=== PATIENT | male | born 1995 | race African-American/Black ===

== ENCOUNTER 2017-01-11 14:12 | Emergency (ER) | payer OTHER ==
[~2017-01-11] VITALS: Ht 175.3 cm; Wt 63.2 kg
[2017-01-11 14:26] VITALS: TEMP 36.9; Ht 175.3 cm; Wt 63.2 kg
[2017-01-11] MEDS ORDERED: MESA1TAB4 PO (15:33)
[2017-01-11] MEDS ORDERED: HIV POST EXPOSURE PROPHYLAXIS KIT ONE (16:00)
[2017-01-11 16:02] LABS: BASO % 0.9 %; BASO ABS # 0.04 K/uL (0-0.2); COMPLETE YES; EOS % 2.4 %; HEMATOCRIT 41.1 % (42-52); IG% 0.2 %; LYMPH % 33.9 %; LYMPH ABS # 1.53 K/uL (1.2-3.4); MEAN CELL VOLUME 81.5 fL (80-100); MEAN CORPUSCULAR HEMOGLOBIN 27.2 pg (25-34); MEAN CORPUSCULAR HGB CONC 33.3 g/dl (32-36); MEAN PLATELET VOLUME 8.7 fL (7.4-10.4); MONO % 9.3 %; NEUT % 53.3 %; PLATELET COUNT 396 K/uL (130-400); RED BLOOD COUNT 5.04 M/uL (4.7-6.1); WHITE BLOOD COUNT 4.51 K/uL (4.8-10.8)
[2017-01-11 16:29] LABS: CREATININE 0.97 mg/dl (0.60-1.40)
[2017-01-11 16:32] LABS: POTASSIUM 4.4 mmol/L (3.5-5.1)
[2017-01-11 16:50] LABS: BUN/CREATININE RATIO 11.5 (10-20); CALCIUM 9.1 mg/dl (8.5-10.1)
[2017-01-11 17:06] LABS: URINE APPEARANCE CLEAR (CLEAR); URINE BILIRUBIN NEG (NEG); URINE COLOR YELLOW; URINE NITRITE NEG (NEG); URINE PH 7.5 (4.5-7.5); URINE SPECIFIC GRAVITY 1.022 (1.000-1.030); UROBILINOGEN NEG (NEG)
[2017-01-11 17:17] LABS: MANUAL MICROSCOPIC REQUIRED? NO; REVIEW REQ? NO
[2017-01-11] MEDS ORDERED: RALT400T PO (17:41)
[2017-01-11] MEDS ORDERED: TRVHP PO (17:41)
[2017-01-11 18:30] VITALS: BP 124/75; PULSE 87; O2SAT 100
--- NOTE | 2017-01-11 22:41 | EMERGENCY ROOM VISIT NOTE ---
History Report prepared by Lashawn: Elena Escobar Under the Supervision of: Dr. Alejandro Womack M.D. First contact with patient: 15:10 Chief Complaint: ABDOMINAL PAIN Stated Complaint: CROHN'S SX/PEP History of Present Illness The patient is a 21 year old male who presents to the Emergency Room with complaints of intermittent bilateral lower abdominal pain for the past 1-2 weeks. His pain is worse in the morning, and he rates his current pain as a 3/ 10 in severity. He has a history of Crohn's Disease and currently takes Asacol. He was diagnosed with Crohn's when he was 16 and denies any flare-ups since his diagnosis. He has been careful about his diet and has been trying to eat healthy. He is currently a [employer] student and states that eating in the dining [place]ehan on campus makes it difficult to eat healthy. The patient has been having increased urge to defecate, but states that he feels slightly constipated. He also reports nausea and subjective fevers. The patient states that he gets similar pain when he is stressed, and he is feeling very stressed now. He states that he is stressed because of school. The patient also reports that yesterday he had a sexual encounter with another male. He was oral receptive and anal insertive during this encounter. He does not know if this person has a history of HIV. He is concerned that he may have been exposed to HIV. He would like testing for HIV and other STDs as well as prophylaxis for HIV. He states that he has never had unprotected sex in the past and has never had an HIV test. He denies any IV drug use. The patient denies melena, hematochezia, vomiting, diarrhea, and urinary symptoms. Source of History: patient Onset: 1-2 weeks ago Position: abdomen (bilateral lower) Symptom Intensity: 3/10 Timing: intermittent Modifying Factors (Worsening): other (stress) Associated Symptoms: + fevers, + nausea, No vomiting, No melena, No hematochezia, No diarrhea, No urinary symptoms Note: Concerned for HIV exposure. Review of Systems See HPI for pertinent positives & negatives. A total of 10 systems reviewed and were otherwise negative. Past Medical & Surgical Medical Problems: (1) Crohn's disease (2) Periosteal chondroma Family History Cancer Hypertension Social History Smoking Status: Never Smoker Smokeless Tobacco Use: No Alcohol Use: none Drug Use: none Marital Status: single Housing Status: lives with roommate Occupation Status: [employer] student Current/Historical Medications Scheduled Emtricitabine/Temofovir (Truvada 200/300MG), 1 TAB PO DAILY Mesalamine (Asacol Hd), 800 MG PO QID Raltegravir Potassium (Isentress), 1 TAB PO BID Allergies Coded Allergies: No Known Allergies (Unverified , 01/11/17) Physical Exam Vital Signs Date Time Temp Pulse Resp B/P (MAP) Pulse Ox O2 Delivery O2 Flow Rate FiO2 01/11/17 18:30 87 18 124/75 100 01/11/17 14:26 36.9 96 18 124/77 97 Room Air Physical Exam Constitutional: Vital signs reviewed. Eyes: Pupils are equal round reactive to light. Conjunctiva are noninjected. ENT: Pharynx is clear without erythema or exudate. Mucous membranes are moist. Neck supple without meningeal signs. Respiratory: Clear to auscultation bilaterally. Breath sounds are equal bilaterally. Cardiovascular: Regular rate and rhythm. No rubs or gallops. GI: Soft, nondistended and nontender. Bowel sounds are present. : No lesions, uncircumcised penis, no urethral discharge. Musculoskeletal: No peripheral edema. No lower extremity tenderness. Integumentary: No cyanosis. Neurological: The patient is awake and alert. No focal deficits. Psychiatric: Anxious. Medical Decision & Procedures Laboratory Results 01/11/17 15:49 Red Blood Count 5.04, Mean Corpuscular Volume 81.5, Mean Corpuscular Hemoglobin 27.2, Mean Corpuscular Hemoglobin Concent 33.3, Mean Platelet Volume 8.7, Neutrophils (%) (Auto) 53.3, Lymphocytes (%) (Auto) 33.9, Monocytes (%) (Auto) 9.3, Eosinophils (%) (Auto) 2.4, Basophils (%) (Auto) 0.9, Neutrophils # (Auto) 2.40, Lymphocytes # (Auto) 1.53, Monocytes # (Auto) 0.42, Eosinophils # (Auto) 0.11, Basophils # (Auto) 0.04 01/11/17 15:49 Test 01/11/17 00:00 01/11/17 15:27 01/11/17 15:49 Urine Color YELLOW Urine Appearance CLEAR (CLEAR) Urine pH 7.5 (4.5-7.5) Urine Specific [place] 1.022 (1.000-1.030) Urine Protein NEG (NEG) Urine Glucose (UA) NEG (NEG) Urine Ketones NEG (NEG) Urine Occult Blood NEG (NEG) Urine Nitrite NEG (NEG) Urine Bilirubin NEG (NEG) Urine Urobilinogen NEG (NEG) Urine Leukocyte Esterase NEG (NEG) White Blood Count 4.51 K/uL (4.8-10.8) Red Blood Count 5.04 M/uL (4.7-6.1) Hemoglobin 13.7 g/dL (14.0-18.0) Hematocrit 41.1 % (42-52) Mean Corpuscular Volume 81.5 fL (80-100) Mean Corpuscular Hemoglobin 27.2 pg (25-34) Mean Corpuscular Hemoglobin Concent 33.3 g/dl (32-36) Platelet Count 396 K/uL (130-400) Mean Platelet Volume 8.7 fL (7.4-10.4) Neutrophils (%) (Auto) 53.3 % Lymphocytes (%) (Auto) 33.9 % Monocytes (%) (Auto) 9.3 % Eosinophils (%) (Auto) 2.4 % Basophils (%) (Auto) 0.9 % Neutrophils # (Auto) 2.40 K/uL (1.4-6.5) Lymphocytes # (Auto) 1.53 K/uL (1.2-3.4) Monocytes # (Auto) 0.42 K/uL (0.11-0.59) Eosinophils # (Auto) 0.11 K/uL (0-0.5) Basophils # (Auto) 0.04 K/uL (0-0.2) RDW Standard Deviation 52.2 fL (36.4-46.3) RDW Coefficient of Variation 17.5 % (11.5-14.5) Immature Granulocyte % (Auto) 0.2 % Immature Granulocyte # (Auto) 0.01 K/uL (0.00-0.02) Anion Gap 8.0 mmol/L (3-11) Est Creatinine Clear Calc Drug Dose 109.5 ml/min Estimated GFR () 130.6 Estimated GFR (Non- 112.7 BUN/Creatinine Ratio 11.5 (10-20) Calcium Level 9.1 mg/dl (8.5-10.1) Total Bilirubin 0.5 mg/dl (0.2-1) Direct Bilirubin 0.1 mg/dl (0-0.2) Aspartate Amino Transf (AST/SGOT) 28 U/L (15-37) Alanine Aminotransferase (ALT/SGPT) 25 U/L (12-78) Alkaline Phosphatase 58 U/L (45-117) Total Protein 8.3 gm/dl (6.4-8.2) Albumin 4.4 gm/dl (3.4-5.0) Lipase 163 U/L (73-393) HIV (1&2) Ab and P24 Ag, 4th Gener NEG (NEG) Laboratory results as reviewed by me. Medications Administered Medications (Trade) Dose Ordered Sig/Sofya Route Start Time Stop Time Status Last Admin Dose Admin Miscellaneous (Hiv Post Exposure Prophylaxis Kit) 1 TODAY@1600 ONCE N/A 01/11/17 16:00 01/11/17 17:43 DC 01/11/17 16:00 1 ED Course 1510: The patient was evaluated in room C9. A complete history and physical exam was performed. At this time I gave the patient pretest counseling for HIV and I discussed the risks of prophylaxis of HIV. 1600: HIV post exposure prophylaxis kit 1713: I reevaluated the patient. He states that he spoke with the sexual partner who said that he was last tested for HIV some time ago and was negative , but he takes Truvada for prophylaxis. The pharmacist is going to discuss the medications at length with the patient. 1749: I updated the patient. I recommended he have his liver and kidney function re-checked in 2 weeks. We are still waiting on his HIV test results. 181: I reassessed the patient at this time. He is resting comfortably and I talked to him about his HIV test. I discussed the results and treatment plan with the patient. I offered him post-exposure counseling and gave him recommendations for re-testing. I answered all pertaining questions that he had. He expressed understanding and verbalized agreement. The patient will be discharged home. Medical Decision This is a 21-year-old male who presents with lower abdominal pain and request for STD testing. Differential diagnosis includes irritable bowel syndrome, Crohn's disease exacerbation, constipation, gonorrhea, chlamydia, syphilis, HIV. I did perform a limited focused review of portions of the patient's old chart on the electronic medical record. The patient has had no prior visits to this hospital. Medication Reconciliation: I attest that I have personally reviewed the patient' s current medication list. Blood Pressure Screening: Patient was found to have a slightly elevated blood pressure due to circumstances. I do not believe that the patient requires hypertension monitoring. I did evaluate the patient as noted above. The patient is presenting with lower abdominal pain for the past 1-2 weeks. He has a history of Crohn's but has never had any complications. On examination today he has no tenderness and denies any rectal bleeding. He is under quite a bit of stress and he believes this is what is causing his pain. As he is not having any abdominal tenderness I did not feel any imaging was indicated at this time. He is also requesting postexposure prophylaxis for HIV as he had unprotected intercourse yesterday with a male partner. IV access was established. I did order and personally review the patient's urinalysis as described above. I did order and review the patient's blood work as noted in the electronic medical record. His white blood cell count is slightly low. He has very mild anemia. Otherwise his labs are unremarkable. Liver function and kidney function are unremarkable. I did have a long discussion with the patient regarding testing for STDs. I did provide pre-and post HIV test counseling. He consented to HIV testing. His HIV test was negative. He understands this is a baseline HIV test and does not mean that he did not contracted HIV from his encounter yesterday. He understands that he will need repeat testing. I did send a urethral swab for GC and chlamydia which are pending. RPR is currently pending. I did have the ED pharmacist talked to the patient about postexposure prophylaxis. I did discuss risks and benefits myself with him. He decided that he would like to proceed with postexposure prophylaxis. He was given Truvada and raltegravir home packs and a prescription for both were provided for 28 days total of treatment. He was told to have his LFTs and kidney function rechecked in about 2 weeks at the [facility] as well as follow up with his doctor regarding his abdominal pain. He was given return instructions as outlined below and discharged in good condition. Impression Primary Impression: Lower abdominal pain Additional Impressions: Contact with and (suspected) exposure to human immunodeficiency virus [hiv] Crohns disease Scribe Attestation The scribe's documentation has been prepared under my direct and personally reviewed by me in its entirety. I confirm that the note above accurately reflects all work, treatment, procedures, and medical decision making performed by me. Departure Information Dispostion Home / Self-Care Prescriptions Raltegravir Potassium (ISENTRESS) 400 Mg Tab 1 TAB PO BID for 25 Days, #50 TAB 5 Refills Prov: Alejandro Womack M.D. 01/11/17 Emtricitabine/Temofovir (Truvada 200/300MG) Tab 1 TAB PO DAILY for 25 Days, #25 TAB 2 Refills Prov: Alejandro Womack M.D. 01/11/17 Referrals No Doctor, Assigned (PCP) Forms HOME CARE DOCUMENTATION FORM, IMPORTANT VISIT INFORMATION Patient Instructions Crohn Disease, Emtricitabine capsules, My [facility], Tenofovir PMPA tablets Additional Instructions You have been examined and treated today on an emergency basis only. This is not a substitute for, or an effort to provide, complete comprehensive medical care. It is impossible to recognize and treat all injuries or illnesses in a single emergency department visit. It is therefore important that you follow up closely with [facility] for follow up within 2 weeks and to also have your blood work rechecked because of the medications you have been prescribed. Call as soon as possible for an appointment. Return for worsening symptoms or if you develop fever, vomiting, rectal bleeding or any other concerning symptoms. Problem Qualifiers Additional Impressions: Crohns disease Gastrointestinal tract location: unspecified location Digestive disease complication type: without complication Qualified Codes: K50.90 - Crohn's disease, unspecified, without complications
--- NOTE | 2017-01-12 13:03 | Pharmacy Progress Note ---
ED Pharmacist Counseling Note Date of Service: Jan 12, 2017. I spent 15 minutes with the patient explaining HIV PEP. Adverse effects, drug interactions, and other pertinent drug information were reviewed with the patient. Counseled that some severe adverse effects are possible (including but not limited to renal and hepatic toxicity) and to notify provider with any new/worrisome symptoms. Patient elected to start HIV PEP with the following: Raltegravir 400 mg po BID Truvada 200/300 mg po daily I provided the patient with a 3 day homepack of the above medications. The remaining 25 day course was sent to [facility]. I spoke with the pharmacist there who is aware and notes that the prescriptions should be available 01/12. Pharmacist noted that the patient's co-pay should be $0 for each medication. All of the patient's questions and concerns were addressed.
[2017-01-15 10:49] LABS: CHLAMYDIA TRACH RNA*** NOT DETECTED (NOT DETECTED); GC (NEIS GONORRHOEAE)RNA** NOT DETECTED (NOT DETECTED)
== END 2017-01-11 18:30 | disposition home or self-care (01) ==
LOC: C.EDB 14:16 → C.EDC 18:30
DX: R10.30 Lower abdominal pain, unspecified (principal); Z20.6 Contact with and (suspected) exposure to human immunodeficiency virus [HIV]; K50.90 Crohn's disease, unspecified, without complications; Z79.899 Other long term (current) drug therapy; Z80.9 Family history of malignant neoplasm, unspecified; Z82.49 Family history of ischemic heart disease and other diseases of the circulatory system